=== PATIENT | female | born 1940 | race Caucasian/White ===

== ENCOUNTER → 2016-12-19 | Outpatient (CLI) | payer OTHER ==
[~2016-12-19] VITALS: Ht 172.7 cm; Wt 94.5 kg
[~2016-12-19] MED LIST: ACCUNEB SO1.25 MG/1 INH; ADVAIR HFA115 MCG/21 INH; ASPIR 8181 M1 PO; ASPIRIN325 PO; BISACODYL SUPP10 MG RECTAL; CENTRUM SILVER1 EAC4 PO; COLACE100 MG PO; COZAAR 25 MG TA25 M1 PO; COZAAR 50 MG TA50 M2 PO; DICLOFENAC POTA50 MG PO; IBUPROFEN 400400 M2; LIPITOR 20 MG T20 M1 PO; MIRALAX17 GM PO; NORCO 5-325 TA1 EACH PO; OMEPRAZOLE 20 M20 M1 PO; OXYCODONE HCL E10 MG PO; PROLIA60 MG/1 ML SQ; TYLENOL325 MG PO; VITAMIN D1000 UNI1 PO; VITAMIN E400 UNIT PO; XANAX 0.25 MG0.25 MG PO
--- NOTE | ~2016-12-19 | HPC ---
[facility] [address] [place] [address] PAIN MANAGEMENT CONSULTATION Name: LAZARANONI Wali Room #: [facility]#: [id number] Admission: 12/19/16 Attend Phys: Tyrone Meeks DO Discharge: Date of : 38 Report #: [id number] THIS REPORT FOR: //name// CC: Tyrone Christine MD DATE OF SERVICE: 12/20/2016 DATE OF SERVICE: 12/19/2016 CHIEF COMPLAINT: Cervicogenic headache. HISTORY OF PRESENT ILLNESS: As you know, patient is a 76-year-old female, who began experiencing upper neck pain radiating in axial distribution to the upper back and over the occiput. She was seen in consultation per the request of Dr. Steven Goyal 11/28/2016. At that visit, diagnosed with cervicogenic headache secondary to cervical facet arthropathy. She was not experiencing at that time any radicular component. We started the patient on conservative medical therapy in the form of anti-inflammatory, diclofenac sodium 50 mg 3 times a day and this has been working excellent. She returns today stating pain of level of no greater than 1/10, exacerbated with lying and sitting down, improves with medications and cold compresses. She returns without changes in her medical history. She is concerned about liver and kidney dysfunction with the medication use. She wish to discuss this today. ALLERGIES: No known drug allergies. CURRENT MEDICATIONS: Prolia 60 mg subq, losartan 50 mg per day, atorvastatin 20 mg per day, cholecalciferol 1000 units twice a day, fluticasone 2 sprays each nostril per day, aspirin 81 mg per day, diclofenac sodium 50 mg 3 times a day p.r.n. SOCIAL HISTORY: The patient denies tobacco, alcohol or IV or illicit drug use. 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 She is accompanied by a family friend today. IMAGING: No new imaging available. PHYSICAL EXAMINATION: VITAL SIGNS: Blood pressure 141/85, pulse 70, respiratory rate 20, unlabored. The patient is 96% on room air. Height 5 feet 8 inches tall, weight 208.4 pounds, BMI calculated 31.7. GENERAL: Well-developed, well-nourished, well-hydrated 76-year-old female appearing stated age. Pain is rated at 1/10. HEENT: Normocephalic, atraumatic. Pupils equal, round, reactive to light. EXTREMITIES: Show no clubbing, no cyanosis, [place] [address] PAIN MANAGEMENT CONSULTATION Name: NONI HAILE Room #: [facility]#: [id number] Admission: 12/19/16 Attend Phys: Tyrone Meeks DO Discharge: Date of : 38 Report #: [id number] MUSCULOSKELETAL: Palpatory tenderness is noted again over the paraspinal musculature upper cervical spine. No spinous process tenderness. Cervical provocation testing causes exacerbation of neck pain that is in a typical distribution axial to the upper back. ASSESSMENT: 1. Cervical spondylosis without radiculopathy. 2. Cervicogenic headache. 3. Cervicalgia. 4. Chronic intractable pain. PLAN: 1. The patient returns today in followup visit having noted excellent benefit with the diclofenac sodium. The patient is concerned about liver and kidney function issues with this medication. Advised the patient that periodic checks could be done to check liver functioning and to check BUN and creatinine levels from a kidney standpoint. These medications do tend to do very well for pain control. They do have some potential side effects and we discussed that at the first visit and rediscussed today. I would recommend that if the patient remain on the medication for a long period of time that periodic LFTs and basic metabolic panels are performed just to confirm no end-organ damage with use of the medication, though this is extremely rare in this case. I have discussed this with the patient today. She can follow up with her PCP to continue this therapy. Obviously, if therapy fails or we need to look towards interventional treatments, she could return at any time. 2. The patient has a prescription of diclofenac sodium 50 mg dose 1 tab p.o. t.i.d., #90 with 2 refills that were provided and on 11/28/2016, she has medication available for at least 2-1/2 months from this point forward. She can follow up with Dr. Goyal for continuation of therapy or she can return to our clinic for continuation of this effective treatment option. By: [id number] Tyrone Meeks DO /nt
== END | disposition home or self-care (01) ==
LOC: PAIN 07:05
DX: M47.22 Other spondylosis with radiculopathy, cervical region (principal); G44.89 Other headache syndrome; M54.2 Cervicalgia; G89.29 Other chronic pain

== ENCOUNTER 2019-01-12 23:11 | Emergency (ER) | payer OTHER ==
[~2019-01-12] VITALS: Ht 172.7 cm; Wt 96.6 kg
--- NOTE | 2019-01-13 00:14 | EKG ---
[place] [place] [address] [place] [address] ELECTROCARDIOGRAM REPORT Name: NONI HAILE Room #: [facility]#: [id number] ������������������ Admission: ������������������ Attend Phys: Discharge: ������������������ Date of : 38 Report #: [id number] ����������������������������������������������������������������� [id number] THIS REPORT FOR: //name// [facility] ED Test Date: 2019-01-12 Test Time: 23:21:42 Pat Name: NONI HAILE Department: Room: Gender: F Commercial Door Installer: ARIANNE : 1940 Requested By: Denise Jeronimo Order Number: [id number] MD: Alonzo Goldberg Measurements Intervals [place] Rate: 71 P: 73 [place]: 49 QRS: 11 QRSD: 90 T: -15 QT: 394 QTc: 429 Interpretive Statements Sinus rhythm Supraventricular bigeminy early transition nonspecific st/t wave changes Compared to ECG 11/30/2014 21:52:17 Atrial premature complex(es) now present Electronically Signed On 01-13-2019 0:13:51 CDT by Alonzo Goldberg [email or web address] ��������������������������������������������� <ELECTRONICALLY SIGNED> ���������������������������������������� By: Alonzo Goldberg MD ��������������������������������������������� 01/13/19 0013 20 20 Alonzo Goldberg MD /EPI
[2019-01-13 00:31] LABS: ABSOLUTE NEUTROPHILS 7.8 thou/uL (1.4-8.2); BASOPHILS 0.5 % (0.0-2.0); EOSINOPHILS 2.3 % (0.0-3.0); HEMATOCRIT 43.5 % (37.0-47.0); HEMOGLOBIN 14.6 gm/dL (12.0-15.0); LYMPHOCYTES 13.5 % (24.0-44.0); MCH 28.7 pg (26.0-34.0); MCHC 33.6 g/dL (28.0-37.0); MCV 85.5 fL (80.0-100.0); MONOCYTES 10.5 % (1.0-8.0); PLATELET COUNT 266 thou/uL (150-400); POLYS 73.2 % (36.0-66.0); RBC 5.09 mil/uL (4.20-5.00); RDW 14.8 % (10.5-14.5); WBC 10.6 thou/uL (4.0-11.0)
[2019-01-13 00:35] LABS: ANION GAP 11 mmol/L (7-16); BUN 17 mg/dL (7-18); CALCIUM 8.9 mg/dL (8.5-10.1); CHLORIDE 100 mmol/L (98-107); CO2 27 mmol/L (21-32); CREATININE 0.8 mg/dL (0.6-1.0); GLUCOSE 129 mg/dL (74-106); POTASSIUM 4.6 mmol/L (3.5-5.1); SODIUM 138 mmol/L (136-145)
[2019-01-13 00:44] LABS: TROPONIN-I <0.06 ng/mL (<0.06)
[2019-01-13] MEDS ORDERED: MOBIC15 MG PO (03:11)
[2019-01-13 03:39] VITALS: BP 141/69
== END 2019-01-13 03:30 | disposition home or self-care (01) ==
LOC: ER 23:11
PROVIDERS: Emergency Medicine
DX: R07.89 Other chest pain (principal)

== ENCOUNTER 2020-07-19 11:02 | Emergency (ER) | payer OTHER ==
[~2020-07-19] VITALS: Ht 172.7 cm; Wt 93.0 kg
[~2020-07-19 11:02] MED LIST changes: +MOBIC15 MG PO
[2020-07-19 11:44] LABS: ICTOTEST (BILI CONFIRMATORY) Negative (Negative); URINE BILIRUBIN NEGATIVE (Negative); URINE BLOOD NEGATIVE (Negative); URINE CLARITY SL CLOUDY; URINE COLOR YELLOW; URINE GLUCOSE-RANDOM* NEGATIVE (Negative); URINE KETONES NEGATIVE (Negative); URINE LEUKOCYTES-REFLEX 2+ (Negative); URINE NITRITE-REFLEX NEGATIVE (Negative); URINE PROTEIN (DIPSTICK) TRACE (Negative); URINE SPECIFIC GRAVITY >= 1.030 (1.005-1.035); URINE UROBILINOGEN 0.2 E.U./dl (0.2-1.0)
[2020-07-19 11:45] LABS: SQUAMOUS 0-3 Few /LPF (0-3); URINE WBC-REFLEX 0-5 Rare /HPF (0-5)
[2020-07-19 11:46] LABS: BACTERIA-REFLEX 1-9 Few /HPF (None Seen); CRYSTALS None Seen /LPF (None Seen); HYALINE CASTS 0-3 Few /LPF (None Seen); URINE RBC None Seen /HPF (0-2)
[2020-07-19 12:03] LABS: ABSOLUTE NEUTROPHILS 6.9 thou/uL (1.4-8.2); BASOPHILS 0.9 % (0.0-2.0); EOSINOPHILS 2.4 % (0.0-3.0); HEMATOCRIT 41.6 % (37.0-47.0); LYMPHOCYTES 14.6 % (24.0-44.0); MCH 29.6 pg (26.0-34.0); MCHC 33.7 g/dL (28.0-37.0); MCV 87.9 fL (80.0-100.0); PLATELET COUNT 304 thou/uL (150-400); POLYS 72.1 % (36.0-66.0); RBC 4.74 mil/uL (4.20-5.00); RDW 14.8 % (10.5-14.5); WBC 9.6 thou/uL (4.0-11.0)
[2020-07-19 12:08] LABS: CALCIUM 9.7 mg/dL (8.5-10.1); CREATININE 0.8 mg/dL (0.6-1.0); POTASSIUM 4.1 mmol/L (3.5-5.1)
[2020-07-19 12:14] LABS: ALBUMIN 3.5 g/dL (3.4-5.0); TOTAL BILIRUBIN 0.8 mg/dL (0.2-1.0); TOTAL PROTEIN 8.2 g/dL (6.4-8.2)
[2020-07-19] MEDS ORDERED: FLAGYL500 M1 PO (14:02)
[2020-07-19] MEDS ORDERED: CIPRO500 M1 PO (14:02)
[2020-07-19 14:06] VITALS: BP 188/93
== END 2020-07-19 14:06 | disposition home or self-care (01) ==
LOC: ER 11:02
PROVIDERS: Physician Assistant
DX: K57.32 Diverticulitis of large intestine without perforation or abscess without bleeding (principal); Z79.82 Long term (current) use of aspirin; Z79.899 Other long term (current) drug therapy; Z90.49 Acquired absence of other specified parts of digestive tract

== ENCOUNTER 2020-09-07 12:33 | Inpatient (IN) | payer OTHER ==
[~2020-09-07] VITALS: Ht 172.7 cm; Wt 97.1 kg
[~2020-09-07 12:33] MED LIST changes: +CIPRO500 M1 PO; +FLAGYL500 M1 PO
[2020-09-07 12:45] VITALS: BP 151/67
[2020-09-07 14:56] LABS: ABSOLUTE NEUTROPHILS 5.7 thou/uL (1.4-8.2); BASOPHILS 0.2 % (0.0-2.0); EOSINOPHILS 0.1 % (0.0-3.0); HEMATOCRIT 37.7 % (37.0-47.0); HEMOGLOBIN 12.6 gm/dL (12.0-15.0); MCH 28.8 pg (26.0-34.0); MCHC 33.4 g/dL (28.0-37.0); MCV 86.2 fL (80.0-100.0); MONOCYTES 8.7 % (1.0-8.0); PLATELET COUNT 258 thou/uL (150-400); RBC 4.38 mil/uL (4.20-5.00); RDW 14.9 % (10.5-14.5); WBC 7.3 thou/uL (4.0-11.0)
[2020-09-07 15:06] LABS: ANION GAP 10 mmol/L (7-16); BUN 10 mg/dL (7-18); CALCIUM 9.1 mg/dL (8.5-10.1); CHLORIDE 100 mmol/L (98-107); CO2 27 mmol/L (21-32); CREATININE 0.7 mg/dL (0.6-1.0); GLUCOSE 124 mg/dL (74-106); POTASSIUM 3.4 mmol/L (3.5-5.1); SODIUM 137 mmol/L (136-145)
[2020-09-07 15:15] LABS: DIRECT BILIRUBIN 0.2 mg/dL (<0.1-0.2); MAGNESIUM 1.9 mg/dL (1.8-2.4); SGOT 38 U/L (15-37); SGPT 31 U/L (30-65); TOTAL BILIRUBIN 0.8 mg/dL (0.2-1.0); TOTAL PROTEIN 7.6 g/dL (6.4-8.2); TROPONIN-I <0.06 ng/mL (<0.06)
--- NOTE | 2020-09-07 16:27 | EKG ---
[facility] [place] [address] [place] [address] ELECTROCARDIOGRAM REPORT Name: NONI HAILE Room #: [facility]#: [id number] Admission: 09/07/20 Attend Phys: Discharge: Date of : 38 Report #: [id number] THIS REPORT FOR: cc: Emily Christine MD, Kristin E. MD Santiago, Patrick MD [facility] ~ THIS REPORT FOR: //name// [facility] ED Test Date: 2020-09-07 Test Time: 13:06:21 Pat Name: NONI HAILE Department: Room: Gender: F Wash Barrel Leader: MICHELLE : 1940 Requested By: Denise Jeronimo Order Number: [id number] MD: Андрей Zhang Measurements Intervals [place] Rate: 67 P: [place]: QRS: 2 QRSD: 91 T: -18 QT: 381 QTc: 403 Interpretive Statements Atrial fibrillation Borderline T abnormalities, inferior leads Compared to ECG 01/12/2019 23:21:42 T-wave abnormality now present Sinus rhythm no longer present Atrial premature complex(es) no longer present ST (T wave) deviation no longer present Electronically Signed On 09-07-2020 16:26:56 CORRECTIONAL TREATMENT SPECIALIST by Андрей Zhang [email or web address] <ELECTRONICALLY SIGNED> By: Андрей Zhang MD, FACC 09/07/20 1626 1306 130 Андрей Zhang MD, [facility] /EPI
[2020-09-07] MEDS ORDERED: WIXELA 250-501 EACH INH (20:17)
[2020-09-07] MEDS ORDERED: PROAIR HFA8.5 GM INH (20:18)
[2020-09-07 23:07] VITALS: BP 160/91
[2020-09-07 23:30] VITALS: BP 160/91
--- NOTE | 2020-09-07 23:31 | NUR ---
EKG DONE IN ER SENT WITH [employer]ENDOR WHEN TRANSPORTING PATIENT TO [facility].
[2020-09-08 00:06] VITALS: BP 144/58
[2020-09-08 03:36] VITALS: BP 143/77
[2020-09-08 05:30] LABS: HEMOGLOBIN 12.9 gm/dL (12.0-15.0); MCH 28.8 pg (26.0-34.0); MCHC 33.1 g/dL (28.0-37.0); MCV 86.9 fL (80.0-100.0); RBC 4.48 mil/uL (4.20-5.00); RDW 15.2 % (10.5-14.5); WBC 4.2 thou/uL (4.0-11.0)
[2020-09-08 05:52] LABS: CALCIUM 9.1 mg/dL (8.5-10.1); CREATININE 0.7 mg/dL (0.6-1.0); MAGNESIUM 2.2 mg/dL (1.8-2.4); POTASSIUM 3.8 mmol/L (3.5-5.1)
--- NOTE | 2020-09-08 06:17 | NUR ---
PT ARRIVED FROM ER VIA CART, PLACED IN ROOM 351. ADMISSION ASSESSMENTS COMPLETED. PT REPORTING "I ALREADY FEEL BETTER THAN I DID THIS MORNING." ON O2 AT 2L PER NC. SEE CHARTING.
[2020-09-08 07:20] VITALS: BP 125/81
--- NOTE | 2020-09-08 14:47 | NUR ---
Case opened to follow for support and dc planning. Pt is in enhanced ISO d/t covid +. Celery Packer visited with her via phone and cm role introduced. The pt reports she lives with her /life partner of many years, Cori. They have a 3 story home with 7 stairs/handrails in between each level. She can enter thru the garage to avoid the 5 steps in through the front door. She does not have any dme or hh history. She is very active and indep. 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 They have been limiting family contact since the pandemic. Cori is getting tested today. The pt has a hx of asthma and does have a nebulizer if needed. Her pcp is Dr. Emily Christine. The pt is up ad carlota in her room and hoping she will return home with outpt f/u. Will follow along should HH/or DME be indicated at dc. Support provided.
[2020-09-08 15:36] VITALS: BP 150/69
--- NOTE | 2020-09-08 18:44 | NUR ---
Assumed pt care at 7am.Assessment completed.vss.Pt said she doesn't belief in covid 19 and constantly removing o2.But replaced o2 and this rn educated pt on covid 19.Dr Pena here,order noted.Pt up to br as needed with sba.Pt reported feeling better with o2 on and wanted to dc home in am.Will continue to monitor.
[2020-09-08 20:25] VITALS: BP 121/54
[2020-09-09 03:29] VITALS: BP 168/92
--- NOTE | 2020-09-09 05:11 | NUR ---
PT MAKING PROGRESS TOWARDS GOALS. PT REPORTING THAT SHE WAS ABLE TO MOVE ABOUT HER ROOM, USE THE BATHROOM TO WASH UP THEN GO BACK TO BED WITHOUT USING OXYGEN OR BECOMING SOA DURING THAT TIME. "I FEEL SO SO MUCH BETTER."
[2020-09-09 06:39] LABS: ALBUMIN 2.8 g/dL (3.4-5.0); CALCIUM 8.7 mg/dL (8.5-10.1); CREATININE 0.8 mg/dL (0.6-1.0); DIRECT BILIRUBIN 0.2 mg/dL (<0.1-0.2); PHOSPHORUS 2.8 mg/dL (2.5-4.9); POTASSIUM 3.8 mmol/L (3.5-5.1); TOTAL BILIRUBIN 0.6 mg/dL (0.2-1.0); TOTAL PROTEIN 6.8 g/dL (6.4-8.2)
[2020-09-09 08:00] VITALS: BP 142/64
--- NOTE | 2020-09-09 09:20 | NUR ---
Assess due to nutrition screening risk identification. Admit COVID+. Has had loss taste/smell with mild wt change prior to admit. Now eating >75% of meals, reports feeling better. Low nutrition risk at this time
--- NOTE | 2020-09-09 11:15 | NUR ---
ASSUMED CARE AT 0700, ASSESSMENT AND VITAL SIGNS COMPLETED PER ICU PROTOCOL. DR. MABRY ROUNDED THIS AM, NO NEW ORDERS RECEIVED. RN WILL CONTINUE TO MONITOR.
--- NOTE | 2020-09-09 11:30 | NUR ---
ON-GOING ASSESSMENT: CM REVIEWED CHART AND SPOKE WITH ATTENDING. PT REMAINS ON IV REMDESIVIR. PT IS CURRENTLY ON 1L OXYGEN. PT IS FROM HOME AND PLANS TO RETURN HOME ONCE MEDICALLY STABLE. CM WILL CONTINUE TO FOLLOW TO ASSIST NEEDED.
[2020-09-09 11:40] VITALS: BP 147/83
[2020-09-09 15:44] VITALS: BP 157/84
[2020-09-09 19:40] VITALS: BP 148/98
[2020-09-10 04:06] VITALS: BP 149/73
--- NOTE | 2020-09-10 05:43 | NUR ---
PT MAKING PROGRESS TOWARDS GOALS. PT REPORTING THAT SHE HAS BEEN WALKING IN HER ROOM, USING THE RESTROOM ALL WITHOUT ANY SOA. ENCOURAGED TO ONLY USE OXYGEN IF SHE BECOMES SOA AND TO CALL STAFF. CONTINUE TO MONITOR.
[2020-09-10 06:14] LABS: ALBUMIN 2.8 g/dL (3.4-5.0); CALCIUM 8.8 mg/dL (8.5-10.1); CREATININE 0.7 mg/dL (0.6-1.0); DIRECT BILIRUBIN 0.2 mg/dL (<0.1-0.2); PHOSPHORUS 3.3 mg/dL (2.5-4.9); POTASSIUM 3.9 mmol/L (3.5-5.1); TOTAL BILIRUBIN 0.5 mg/dL (0.2-1.0); TOTAL PROTEIN 6.6 g/dL (6.4-8.2)
[2020-09-10 07:34] VITALS: BP 152/75
--- NOTE | 2020-09-10 13:35 | NUR ---
ON-GOING ASSESSMENT: CM REVIEWED CHART AND SPOKE WITH ATTENDING. PT REMAINS IN ENHANCED ISOLATION DUE TO COVID 19 AND IS TO GET HER LAST DOSE OF REMDESIVIR TOMORROW PER BEDSIDE RN. PT SHOWING BEING ON 2L OXYGEN BUT BEDSIDE RN REPORTS SHE IS NOW OFF AND DOES NOT ANTICIPATE SHE WILL NEED OXYGEN AT DISCHARGE. CM WILL CONTINUE TO FOLLOW TO ASSIST NEEDED.
[2020-09-10 15:31] VITALS: BP 149/61
--- NOTE | 2020-09-10 18:50 | NUR ---
VERY PLEASANT LADY. SHE IS ALERT ORIENTED X4. PLEASANT. AMBULATES WITH NO DIFFICULTY. WILL CONT WIHT PLAN OF CARE.
[2020-09-10 19:32] VITALS: BP 131/66
--- NOTE | 2020-09-10 22:47 | NUR ---
PT RESTING IN BED, SMILING PLEASANT, TALKATIVE. PT VERBALIZED PLAN TO DC IN AM. PT PROVIDED HS SNACK. LUNGS CLEAR, NO SOA WITH TALKING NOTED.
[2020-09-11 03:17] VITALS: BP 178/86
[2020-09-11 06:27] LABS: ALBUMIN 2.6 g/dL (3.4-5.0); CALCIUM 9.4 mg/dL (8.5-10.1); CREATININE 0.7 mg/dL (0.6-1.0); DIRECT BILIRUBIN 0.1 mg/dL (<0.1-0.2); PHOSPHORUS 3.5 mg/dL (2.5-4.9); POTASSIUM 3.8 mmol/L (3.5-5.1); TOTAL BILIRUBIN 0.4 mg/dL (0.2-1.0); TOTAL PROTEIN 6.8 g/dL (6.4-8.2)
[2020-09-11 07:33] VITALS: BP 146/80
[2020-09-11 15:29] VITALS: BP 136/82
--- NOTE | 2020-09-11 18:40 | NUR ---
PATIENT IS PLEASANT WITH CARE. DOES NOT SEEM TO BE IN PAIN. UP AD GUILLE.
[2020-09-11 19:21] VITALS: BP 149/62
--- NOTE | 2020-09-11 22:13 | NUR ---
PT VERY CHEERFUL TALKATIVE STATING SHE IS EXCITED TO DC TOMORROW. LUNGS CLEAR. PT INDEP WITH CARES, STEADY GAIT. PROVIDED HS SNACK.
[2020-09-12 03:25] VITALS: BP 135/73
[2020-09-12 05:12] LABS: ALBUMIN 2.6 g/dL (3.4-5.0); CALCIUM 8.7 mg/dL (8.5-10.1); CREATININE 0.7 mg/dL (0.6-1.0); DIRECT BILIRUBIN 0.2 mg/dL (<0.1-0.2); PHOSPHORUS 3.6 mg/dL (2.5-4.9); POTASSIUM 3.7 mmol/L (3.5-5.1); TOTAL BILIRUBIN 0.5 mg/dL (0.2-1.0); TOTAL PROTEIN 6.6 g/dL (6.4-8.2)
[2020-09-12 07:11] VITALS: BP 158/90
[2020-09-12 10:37] VITALS: BP 158/90
[2020-09-12] MEDS ORDERED: ZINC SULFATE 2220 MG PO (10:58)
[2020-09-12] MEDS ORDERED: ACEROLA C500 MG PO (10:59)
[2020-09-12 11:10] VITALS: BP 158/90
== END 2020-09-12 12:30 | disposition home or self-care (01) | DRG 177 ==
LOC: ER 12:33 → EROBS 19:24 → 3W 19:24
PROVIDERS: Emergency Medicine; Nurse Practitioner Family; Specialist; ADMIT Internal Medicine; ATTEND Internal Medicine
PROC: XW033E5 Introduction of Remdesivir Anti-infective into Peripheral Vein, Percutaneous Approach, New Technology Group 5 (ICD-10-PCS; principal; 2020-09-08)
DX: U07.1 COVID-19 (principal); J96.01 Acute respiratory failure with hypoxia; J12.89 Other viral pneumonia; J45.901 Unspecified asthma with (acute) exacerbation; I10 Essential (primary) hypertension; E78.5 Hyperlipidemia, unspecified; G89.29 Other chronic pain; M54.9 Dorsalgia, unspecified; Z90.49 Acquired absence of other specified parts of digestive tract; Z98.42 Cataract extraction status, left eye; Z98.41 Cataract extraction status, right eye; Z79.82 Long term (current) use of aspirin; Z79.899 Other long term (current) drug therapy; Z87.891 Personal history of nicotine dependence; I25.2 Old myocardial infarction
CPT/HCPCS: 10879